=== PATIENT | female | born 1930 | race Caucasian/White ===

== ENCOUNTER → 2017-06-08 | Outpatient (CLI) | payer MEDICARE, OTHER ==
[~2017-06-08] MED LIST: ALDACTONE25 MG PO; ASPIR 8181 M1 PO; B COMPLEX1 EACH PO; COREG25 MG PO; FOLIC ACID1 MG PO; HAIR, SKIN & N1 EAC1 PO; IMDUR 30 MG TAB30 M1 PO; LASIX 20 MG TAB20 MG PO; LASIX 40 MG TAB40 M2 PO; NITROGLYCERIN0.4 MG SUBLING; TRAMADOL 50 MG50 MG PO; XARELTO15 MG PO
--- NOTE | 2017-06-08 15:41 | 2DMMODE ---
[place] [address] 2 D/M-MODE ECHOCARDIOGRAM Name: KELSEAYOKASTADOLLY L Room: [facility]#: [id number] Admission: 06/08/17 Attend Phys: Jaiden Dudley, Discharge: Date of : [birth year] Date of Service: 06/08/17 1540 Report #: [id number] THIS REPORT FOR: //name// APPROVED REPORT Study performed: 06/08/2017 12:57:16 EXAM: Comprehensive 2D, Doppler, and color-flow Echocardiogram Patient Location: Out-Patient Status: routine BSA: 1.53 HR: 86 bpm BP: 140/80 mmHg Other Information Study Quality: Good Indications Aortic valve replacement 2D Dimensions LVEF(%): 65.04 (>50%) IVSd: 11.19 (7-11mm) LVOT Diam: 20.46 (18-24mm) LVDd: 45.44 mm PWd: 7.62 (7-11mm) Ascending Ao: 25.64 (22-36mm) LVDs: 29.31 (25-40mm) Aortic Root: 20.26 mm Basilio's LVEF: 65.04 % Volumes Left Atrial Volume (Systole) LA ESV Index: 34.60 mL/m2 Aortic Valve AoV Peak William.: 1.57 m/s AO Peak Gr.: 9.87 mmHg LVOT Max P.42 mmHg AO Mean Gr.: 6.29 mmHg LVOT Mean P.31 mmHg LVOT Max V: 0.78 m/s AO V2 VTI: 35.77 cm LVOT Mean V: 0.53 m/s CARLEE (VTI): 1.59 cm2 LVOT V1 VTI: 17.28 cm AI Day: 2.43 m/s2 AI PHT: 423.99 [place] [address] 2 D/M-MODE ECHOCARDIOGRAM Name: DOLLY MOODY Room: [facility]#: [id number] Admission: 06/08/17 Attend Phys: Jaiden Dudley, Discharge: Date of : [birth year] Date of Service: 06/08/17 1540 Report #: [id number] MV Decel. Time: 202.40 ms MV PHT: 58.69 ms MVA (PHT): 3.75 cm2 TDI Medial E' William.: 0.05 m/s Lateral E' William.: 0.08 m/s Pulmonary Valve PV Peak William.: 0.70 m/s PV Peak Gr.: 1.94 mmHg Tricuspid Valve TR Peak Gr.: 28.22 mmHg RVSP: 33.22 mmHg Left Ventricle The left ventricle is normal size. There is mild global hypokinesis. There is normal left ventricular wall thickness. Left ventricular systolic function is mildly decreased. LVEF is 45-50%. This study is not technically sufficient to allow evaluation of the LV diastolic function due to atrial fibrillation. Right Ventricle The right ventricle is normal size. The right ventricular systolic function is normal. Atria Left atrium is moderately dilated. Right atrium is mildly dilated. Aortic Valve The aortic valve is normal in structure. Bioprosthetic aortic valve in place with no evidence of stenosis and mild perivalvular insufficiency. Mild aortic regurgitation. There is no aortic valvular stenosis. Mitral Valve There is mitral annular calcification. Mild mitral regurgitation. No evidence of mitral valve stenosis. Tricuspid Valve The tricuspid valve is normal in structure. Mild tricuspid regurgitation. The RVSP is __33.2 mmHg. Pulmonic Valve The pulmonary valve is normal in structure. Mild [place] [address] 2 D/M-MODE ECHOCARDIOGRAM Name: DOLLY MOODY Room: [facility]#: [id number] Admission: 06/08/17 Attend Phys: Jaiden Dudley, Discharge: Date of : [birth year] Date of Service: 06/08/17 1540 Report #: [id number] Great Vessels The aortic root is normal in size. IVC is normal in size and collapses with >50% inspiration Pericardium There is no pericardial effusion. <Conclusion> The left ventricle is normal size. There is normal left ventricular wall thickness. Left ventricular systolic function is mildly decreased. LVEF is 45-50%. There is mild global hypokinesis. Left atrium is moderately dilated. Right atrium is mildly dilated. Bioprosthetic aortic valve in place with no evidence of stenosis and mild perivalvular insufficiency There is mitral annular calcification. Mild mitral regurgitation. Mild tricuspid regurgitation. The RVSP is __33.2 mmHg. Mild pulmonic regurgitation. <ELECTRONICALLY SIGNED> By: Jaiden Dudley MD, FACC 06/08/17 1540 1540 1540 Jaiden Dudley MD, FACC /INF
== END ==
LOC: M.CRD 12:29
DX: I08.1 Rheumatic disorders of both mitral and tricuspid valves (principal); I10 Essential (primary) hypertension; I25.10 Atherosclerotic heart disease of native coronary artery without angina pectoris; E78.5 Hyperlipidemia, unspecified; I73.9 Peripheral vascular disease, unspecified; I48.91 Unspecified atrial fibrillation; Z95.2 Presence of prosthetic heart valve; Z88.8 Allergy status to other drugs, medicaments and biological substances

== ENCOUNTER 2017-10-04 15:33 | Inpatient (IN) | payer MEDICARE, OTHER ==
[~2017-10-04] VITALS: Ht 160 cm; Wt 46.9 kg
[~2017-10-04 15:33] MED LIST changes: -LASIX 20 MG TAB20 MG PO; -LASIX 40 MG TAB40 M2 PO
[2017-10-04 15:38] VITALS: BP 110/68
[2017-10-04 15:59] LABS: BE -0.8 mmol/L (-2 to +3); HCO3 23.8 mmol/L (22.0-26.0); PCO2 39.3 mmHg (35.0-45.0)
[2017-10-04 16:01] LABS: PO2 56.1 mmHg (75.0-100.0)
[2017-10-04 16:09] LABS: ABSOLUTE BASOPHILS 0.1 thou/uL (0.0-0.2); ABSOLUTE EOSINOPHILS 0.2 thou/uL (0.0-0.7); ABSOLUTE LYMPHOCYTES 1.7 thou/uL (0.8-5.3); ABSOLUTE MONOCYTES 0.8 thou/uL (0.0-1.2); ABSOLUTE NEUTROPHILS 3.9 thou/uL (1.6-8.1); EOSINOPHILS 2.7 %; HEMATOCRIT 35.1 % (37.0-47.0); HEMOGLOBIN 11.5 gm/dL (12.0-15.0); LYMPHOCYTES 25.3 %; MCHC 32.7 g/dL (28.0-37.0); MCV 94.8 fL (80.0-100.0); MONOCYTES 12.4 %; MPV 9.7 fl. (7.2-11.1); NUCLEATED RBCS 0 /100WBC; PLATELET COUNT* 168 thou/uL (150-400); POLYS 58.6 %; RBC 3.71 mil/uL (4.20-5.00); RDW-CV 15.4 % (10.5-14.5); WBC 6.6 thou/uL (4.0-11.0)
[2017-10-04 16:18] LABS: ANION GAP 7 mmol/L (7-16); BUN 26 mg/dL (7-18); CALCIUM 8.7 mg/dL (8.5-10.1); CHLORIDE 101 mmol/L (98-107); CO2 27 mmol/L (21-32); CREATININE 1.4 mg/dL (0.6-1.3); GLUCOSE 203 mg/dL (70-99); POTASSIUM 4.1 mmol/L (3.5-5.1); SODIUM 135 mmol/L (136-145)
[2017-10-04 16:25] LABS: ALBUMIN 3.4 g/dL (3.4-5.0); ALKALINE PHOSPHATASE 78 U/L (46-116); MAGNESIUM 1.9 mg/dL (1.8-2.4); SGOT 16 U/L (15-37); SGPT 22 U/L (30-65); TOTAL BILIRUBIN 0.8 mg/dL (<0.1-1.0); TOTAL PROTEIN 6.8 g/dL (6.4-8.2); TROPONIN-I LEVEL <0.06 ng/mL (<0.06)
[2017-10-04 16:44] LABS: APTT 30.9 Seconds (25.0-31.3); INR 1.2; PROTIME 11.5 Seconds (9.20-11.50)
[2017-10-04 17:49] LABS: URINE BILIRUBIN NEGATIVE (Negative); URINE BLOOD NEGATIVE (Negative); URINE CLARITY CLEAR; URINE COLOR DARK YELLOW; URINE GLUCOSE-RANDOM NEGATIVE (Negative); URINE KETONES NEGATIVE (Negative); URINE LEUKOCYTES-REFLEX 1+ (Negative); URINE NITRITE-REFLEX NEGATIVE (Negative); URINE PROTEIN 1+ (Negative); URINE UROBILINOGEN 0.2 E.U./dl (0.2-1.0)
[2017-10-04 17:56] LABS: SQUAMOUS 4-10 Moderate /LPF (0-3)
[2017-10-04 17:57] LABS: CASTS None Seen /LPF (None Seen); CRYSTALS None Seen /LPF (None Seen); URINE RBC None Seen /HPF (0-2); URINE WBC-REFLEX >25 Many /HPF (0-5)
--- NOTE | 2017-10-04 18:23 | NUR ---
DOCUMENTATION OF NSG STUDENT Brittany REINOSO REVIEWED & AGREE W/ SAME.
[2017-10-04 21:32] VITALS: BP 174/81
[2017-10-05] VITALS: BP 145/56
--- NOTE | 2017-10-05 00:54 | NUR ---
RECEIVED REPORT FROM DATA CENTER ENGINEER AND ASSUMED CARE OF PATIENT AT 2150 AT TIME OF TRANSFER TO UNIT. ADMISSION HISTORY AND ASSESSMENT COMPLETED CHARTED, VSS ON 2L O2 NC. 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 PATIENT DENIES PAIN AND DISCOMFORT. PATIENT CHIEF COMPLAINT IS WEAKNESS AND INABILITY TO DO STUFF ON HER OWN. PATIENT UP STANDBY ASSIST TO BATHROOM. FALL PRECAUTIONS IN PLACE DUE TO WEAKNESS/FATIGUE. GOAL IS ACTIVITY TOLERATED, COUGH AND DEEP BREATHE, AND PREVENT FALLS AND INJURY. CALL LIGHT WITHIN REACH
[2017-10-05 04:00] VITALS: BP 114/65
--- NOTE | 2017-10-05 05:05 | NUR ---
PATIENT PROGRESSING TOWARDS GOALS: PATIENT'S O2 SATS MAINTAINED >92% ON 2L O2 NC. PATIENT ENCOURAGED TO COUGH AND DEEP BREATHE THROUGHOUT SHIFT, FAIR COUGH EFFORT, NON-PRODUCTIVE. PATIENT ABLE TO AMBULATE TO BATHROOM WITH STANDBY ASSIST. DAUGHTER AT BEDSIDE. HOURLY ROUNDING OBSERVED. CALL LIGHT WITHIN REACH
[2017-10-05 07:50] VITALS: BP 128/53
--- NOTE | 2017-10-05 07:54 | NUR ---
ASSUMED RESPONSBILITY OF PT THIS AM PT IS ALERT AND ORIENTED FORGETFUL AT TIMES SBA D/T FATIGUE CV CONSULT TODAY NPO UNTIL SEES ECHO TO BE DONE RAC IV SALINE LOCKED ON A HEART HEALTHY DIET DNR STATUS IN NOTES BUT NOT AN ORDER WILL DISCUSS WITH DR RAE BLOOD SUGARS PT EVAL NEGATIVE FOR SEPSIS TRACKING NSR WITH PACS ON MONITOR DENIES ANY PAIN CALL LIGHT IN REACH BED ALARM ON
[2017-10-05 09:34] LABS: CALCIUM 9.4 mg/dL (8.5-10.1); CREATININE 1.4 mg/dL (0.6-1.3); MAGNESIUM 1.8 mg/dL (1.8-2.4); POTASSIUM 3.7 mmol/L (3.5-5.1)
[2017-10-05 12:43] VITALS: BP 113/49
--- NOTE | 2017-10-05 14:40 | NUR ---
Pt out of room, spoke with dtr at bedside. Pt resides at home, Pt's son has been staying with her for the past few months. Pt is independent with iadls. Pt's son completes the cooking and cleaning. Son and dtr provide transportation. Pt uses a cane for mobility. 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 No hx of SNF. Pt wears home o2 at [facility], dtr does not know with which company. Goal is for Pt to return home. Dtr stated that they have plans to fly to [facility] on Wednesday, so do not want HH set up. Following for disposition.
--- NOTE | 2017-10-05 16:10 | 2DMMODE ---
[place] [address] 2 D/M-MODE ECHOCARDIOGRAM Name: DOLLY MOODY Room: [address] IN [facility]#: [id number] Admission: 10/04/17 Attend Phys: Bob Gong, Discharge: Date of : [birth year] Date of Service: 10/05/17 1609 Report #: [id number] THIS REPORT FOR: //name// APPROVED REPORT Study performed: 10/05/2017 10:45:14 EXAM: Comprehensive 2D, Doppler, and color-flow Echocardiogram Patient Location: In-Patient Room #: [facility] Status: routine BSA: 1.55 HR: 81 bpm BP: 128/53 mmHg Rhythm: Atrial Fibrillation Other Information Study Quality: Good Indications Atrial Fibrillation CAD Pleural Effusion 2D Dimensions LVEF(%): 47.92 (>50%) IVSd: 12.21 (7-11mm) LVOT Diam: 17.61 (18-24mm) LVDd: 34.90 mm PWd: 11.97 (7-11mm) LVDs: 26.72 (25-40mm) Aortic Root: 28.05 mm Basilio's LVEF: 47.92 % Volumes Left Atrial Volume (Systole) LA ESV Index: 45.90 mL/m2 Aortic Valve AoV Peak William.: 1.75 m/s AO Peak Gr.: 12.28 mmHg LVOT Max P.08 mmHg AO Mean Gr.: 7.63 mmHg LVOT Mean P.22 mmHg LVOT Max V: 1.01 m/s AO V2 VTI: 35.59 cm LVOT Mean V: 0.69 m/s CARLEE (VTI): 1.53 cm2 LVOT V1 VTI: 22.33 cm AI [place]: 2.64 m/s2 [place] [address] 2 D/M-MODE ECHOCARDIOGRAM Name: DOLLY MOODY Room: [address] IN [facility]#: [id number] Admission: 10/04/17 Attend Phys: Bob Gong, Discharge: Date of : [birth year] Date of Service: 10/05/17 1609 Report #: [id number] AI PHT: 390.90 ms Mitral Valve MV Decel. Time: 169.26 ms MV PHT: 49.08 ms MVA (PHT): 4.48 cm2 TDI Medial E' William.: 0.08 m/s Lateral E' William.: 0.08 m/s Pulmonary Valve PV Peak William.: 0.80 m/s PV Peak Gr.: 2.56 mmHg Tricuspid Valve RAP Estimate: 5.00 mmHg TR Peak Gr.: 23.27 mmHg RVSP: 28.27 mmHg PA Pressure: 28.27 mmHg Left Ventricle The left ventricle is normal size. There is normal LV segmental wall motion. Mild concentric left ventricular hypertrophy. Left ventricular systolic function is normal. LVEF is 50-55%. This study is not technically sufficient to allow evaluation of the LV diastolic function due to atrial fibrillation. Right Ventricle The right ventricle is normal size. The right ventricular systolic function is normal. Atria Left atrium is moderately dilated. Right atrium is moderately dilated. Aortic Valve The Aortic valve is sclerotic. Prosthetic aortic valve is visualized. Mild aortic regurgitation. There is no aortic valvular stenosis. Mitral Valve There is mitral annular calcification. Mild mitral regurgitation. No evidence of mitral valve stenosis. Tricuspid Valve The tricuspid valve is normal in structure. Mild tricuspid regurgitation. [place] [address] 2 D/M-MODE ECHOCARDIOGRAM Name: KELSEADOLLY TEMPLETON Shubham Room: [address] IN [facility]#: [id number] Admission: 10/04/17 Attend Phys: Bob Gong, Discharge: Date of : [birth year] Date of Service: 10/05/17 1609 Report #: [id number] Pulmonic Valve The pulmonary valve is normal in structure. Mild pulmonic regurgitation. Great Vessels The aortic root is normal in size. IVC is normal in size and collapses with >50% inspiration Pericardium There is no pericardial effusion. Left pleural effusion. <Conclusion> The left ventricle is normal size. Mild concentric left ventricular hypertrophy. Left ventricular systolic function is normal. LVEF is 50-55%. Left atrium is moderately dilated. Right atrium is moderately dilated. Prosthetic aortic valve is visualized. Mild aortic regurgitation. There is no aortic valvular stenosis. There is mitral annular calcification. Mild mitral regurgitation. Mild tricuspid regurgitation. No pulmonary hypertension. Mild pulmonic regurgitation. <ELECTRONICALLY SIGNED> By: Jaiden Dudley MD, FACC 10/05/17 1609 1609 1609 Jaiden Dudley MD, FACC /INF
[2017-10-05 16:28] VITALS: BP 94/54
--- NOTE | 2017-10-05 17:09 | NUR ---
PT COULD NOT COMPLETE THORACENTESIS D/T NOT ENOUGH FLUID TO DRAIN ACCORDING TO REPEAT CXR TO BE DONE TOMORROW LABS DONE DENIES PAIN HOLD XARELTO JUST TO BE SURE NO THORA DONE TOMORROW DTR AT BEDSIDE NO CONCERNS POSSIBLE DC TOMORROW
--- NOTE | 2017-10-05 17:15 | EKG ---
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 MAYBERRY : 1930 Requested By: Myrtle Mendoza Order Number: [id number] MD: Jaiden Dudley Measurements Intervals [place] Rate: 90 P: [place]: QRS: 86 QRSD: 82 T: 197 QT: 342 QTc: 419 Interpretive Statements Atrial fibrillation Borderline right axis deviation Nonspecific repol abnormality, lateral leads No previous ECG available for comparison Electronically Signed On 10-05-2017 17:15:42 CDT by Jaiden Dudley [email or web address] <ELECTRONICALLY SIGNED> By: Jaiden Dudley MD, [facility] 10/05/17 1715 1541 1541 Jaiden Dudley MD, FAC /EPI
--- NOTE | 2017-10-05 17:23 | EKG ---
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
[2017-10-05 20:10] VITALS: BP 106/30
[2017-10-06] VITALS: BP 122/46
[2017-10-06 02:07] LABS: GLYCOHEMOGLOBIN (HGB A1C) 7.2 % (4.8-5.6)
[2017-10-06 04:00] VITALS: BP 145/56
--- NOTE | 2017-10-06 04:35 | NUR ---
PATIENT HAS REMAINED ALERT AND ORIENTED X 4 THROUGHOUT THE SHIFT AND RESTING QUIETLY AT HOURLY ROUNDS. UP INDEPENDENTLY IN ROOM WITH DAUGHTER. NO ACUTE DISTRESS NOTED. O2 REMAINED ON OVERNIGHT. NPO AT MIDNIGHT FOR F/U CXR AND POSSIBLE RE-TRY ON THORENCENTESIS. VITAL SIGNS STABLE. CONTINUE TO MONITOR.
[2017-10-06 05:16] LABS: CALCIUM 8.5 mg/dL (8.5-10.1); CREATININE 1.5 mg/dL (0.6-1.3); MAGNESIUM 1.6 mg/dL (1.8-2.4); POTASSIUM 3.8 mmol/L (3.5-5.1)
[2017-10-06 08:00] VITALS: BP 141/66
[2017-10-06] MEDS ORDERED: LASIX 40 MG TAB40 M2 PO (10:26)
[2017-10-06 11:00] VITALS: BP 120/59
--- NOTE | 2017-10-06 13:44 | NUR ---
ASSUMED RESPONSIBILITY OF PT THIS AM PT IS ALERT AND ORIENTED BUT FORGETFUL DENIES ANY PAIN CXR TO BE DONE TODAY TO SEE IF THORACENTESIS IS NECESSARY PT IS ON 2L NC AND DESATS WHEN NOT ON PT ONLY WEARS AT NIGHT AT HOME DTR AT BEDSIDE CALL LIGHT IN REACH
[2017-10-06] MEDS ORDERED: LASIX 20 MG TAB20 MG PO (14:29)
--- NOTE | 2017-10-06 15:21 | NUR ---
PT WILL POSSIBLY DC TOMORROW WITH HOMEHEALTH SERVICES. PT LIVES IN [place] AND REQUESTED TO USE SAME SERVICE FROM [facility]. CALLED AND FAXED [facility] TO CONFIRM AUTHORIZATION. SPOKE WITH REP AND SHE IS A RETURNING PATIENT AND IS APPROVED.
--- NOTE | 2017-10-06 15:38 | NUR ---
PT IS DISCHARGING HOME WITH DAUGHTER SAMPLE NICKIE GIVEN APPOINTMENT SCHEDULED FOR 10/12 AT 1500 MADE APPOINTMENT WITHIN 7 DAYS NO CONCERNS AT THIS TIME OR QUESTIONS LOCKSMITH AND IV DISCONTINUED
== END 2017-10-06 15:45 | disposition home health service (06) | DRG 291 ==
LOC: M.ERS 15:33 → M.TBA-ER 18:22 → M.2W 18:22
PROVIDERS: Personal Emergency Response Attendant; ADMIT Internal Medicine
DX: I13.0 Hypertensive heart and chronic kidney disease with heart failure and stage 1 through stage 4 chronic kidney disease, or unspecified chronic kidney disease (principal); G92 Toxic encephalopathy; I50.43 Acute on chronic combined systolic (congestive) and diastolic (congestive) heart failure; J96.01 Acute respiratory failure with hypoxia; J98.11 Atelectasis; J90 Pleural effusion, not elsewhere classified; E44.0 Moderate protein-calorie malnutrition; Z68.1 Body mass index [BMI] 19.9 or less, adult; N18.3 Chronic kidney disease, stage 3 (moderate); F32.9 Major depressive disorder, single episode, unspecified; Z66 Do not resuscitate; E11.22 Type 2 diabetes mellitus with diabetic chronic kidney disease; I25.10 Atherosclerotic heart disease of native coronary artery without angina pectoris; E11.51 Type 2 diabetes mellitus with diabetic peripheral angiopathy without gangrene; I48.2 Chronic atrial fibrillation; E78.5 Hyperlipidemia, unspecified; E11.65 Type 2 diabetes mellitus with hyperglycemia; Z79.01 Long term (current) use of anticoagulants; Z95.2 Presence of prosthetic heart valve; Z88.8 Allergy status to other drugs, medicaments and biological substances; Z91.041 Radiographic dye allergy status; Z79.82 Long term (current) use of aspirin; Z79.899 Other long term (current) drug therapy; Z95.1 Presence of aortocoronary bypass graft; Z79.4 Long term (current) use of insulin; Z90.721 Acquired absence of ovaries, unilateral; Z87.891 Personal history of nicotine dependence